=== PATIENT | male | born 1985 | race Hispanic/Latino ===

== ENCOUNTER 2023-03-20 06:05 | Day surgery (SDC) | payer BC ==
[~2023-03-20] VITALS: Ht 182.9 cm; Wt 104.5 kg
[2023-03-20 06:14] VITALS: BP 120/64
--- NOTE | 2023-03-20 09:02 | NUR ---
03/20/23 0902 Brook Hernandez 0843- PT ARRIVES TO PACU FROM OR VIA STRETCHER. PT REPORTS PAIN 4/10 BUT STATES TOLERABLE AT THIS TIME. PT ON 6L OF O2 VIA MASK AND IS AWAKE BUT NOT ORIENTED. PT REORIENTED TO UNIT AND REACHING AT TAKING MASK OFF. PT CALMED AND ASKING QUESTIONS APPROPRIATELY. INCISION IS C/D/I, PT EDUCATED ABOUT NOT TOUCHING INCISION SITE AND STATES VERBAL UNDERSTANDING. REPORT RECEIVED FROM TATYANA FERNANDEZ AND MILTON RN. 0850- PT TRIALED TO RA, PT O2 SATS >90% VIA RA AND REPORTS NO DIFFICULTY BREATHING OR SOB. PT ASKING APPROPRIATE QUESTIONS AT THIS TIME. 0858- PT PERIODICALLY CLOSING EYES. PT ON RA W/O2 SATS >90%. RESPIRATIONS REMAIN EVEN AND UNLABORED, NO SIGNS OF DISTRESS. ESTHELA HUGGER IN PLACE D/T REPORT OF FEELING COLD. PT STATES NO CHANGE IN PAIN SCALE FROM 4/10 TOLERABLE PAIN LEVEL AT THIS TIME.
[2023-03-20] MEDS ORDERED: IBUPROFEN600 MG PO (09:04)
[2023-03-20] MEDS ORDERED: ACETAMINOPHEN500 MG PO (09:04)
[2023-03-20] MEDS ORDERED: OXYCODON-ACETA1 EAC2 PO (09:04)
[2023-03-20 09:24] VITALS: BP 118/71
--- NOTE | 2023-03-20 09:32 | NUR ---
LE 0915 PATIENT BACK TO ROOM 3. VITAL SIGNS COMPLETE. PATIENT ALERT AND ORIENTED. BREATHING EQUAL AND UNLABORED. PATIENT STATES PAIN IS A 4/10 BUT IS TOLERABLE. PATIENT DENIES BEING NAUSEATED. PATIENT DRINKING WATER AND EATING CRACKERS. DRESSING CLEAN, DRY AND INTACT. IVF INFUSING. SCD'S ON. CALL LIGHT WITHIN REACH NO FUTHER NEEDS. NO QUESTIONS.
[2023-03-20 10:27] VITALS: BP 111/60
--- NOTE | 2023-03-20 10:28 | NUR ---
LE 1000 PATIENT AMBULATED TO THE RESTROOM. PATIENT VOIDED CLEAR AND YELLOW URINE. PATIENT BACK TO ROOM. PATIENT STATES PAIN HAS IMPROVED SINCE GIVING PAIN MEDICINE SEE EMAR. PATIENT ALERT AND ORIENTED. PATIENT BREATHING EQUAL AND UNLABORED. OXYGEN SATURATIONS ABOVE 90% ON ROOM AIR. PATIENT DENIES BEING NAUSEATED. PATIENT ASKED IF HE COULD GO TO WORK TOMORROW. EXPLAINED TO PATIENT NO WORK 24 HOURS POST ANESTHESIA. 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 PATIENT DRESSING HAS SMALL AMOUNT OF RED DRAINAGE ON IT. LE 1020 PATIENT HAS MET DISCHARGE CRITERIA. PATIENT WAS ABLE TO DRESS SELF AND TOLERATED IT WELL. PATIENT IV D/C'D WNL. PATIENT GIVEN DISCHARGE INSTRUCTIONS AND UNDERSTOOD. NO QUESTIONS AT THIS TIME. NO FUTHER NEEDS.
--- NOTE | 2023-03-20 11:51 | NUR ---
AND SON IN ROOM. EXERCISED MINISTRY OF PRESENCE TALKED OF ADJUSTING TO BECOMING FAMILY OF THREE. PT CONSENTED TO PRAYER. PRAYED FOR SUCCESSFUL PROCEDURE, MAHER RECOVERY, AND ONGOING BLESSING.
--- NOTE | 2023-03-21 13:56 | OR ---
[facility] [address], [place] [address] Signed DATE OF OPERATION: 03/20/2023 SURGEON: Neo Nichols MD PREOPERATIVE DIAGNOSIS: Right symptomatic posterior (occipital) soft tissue scalp mass. POSTOPERATIVE DIAGNOSIS: Right symptomatic posterior (occipital) soft tissue scalp mass consistent with lipoma, subgaleal 3 cm. PROCEDURE: Excision of subgaleal soft tissue mass, right occipital area. ANESTHESIA: General LMA, Chiki Reddy CRNA and local 5 mL of 0.25% Marcaine with epinephrine. 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 He has had no drainage or other area of problem with it. The patient was seen by Dr. Adams while accompanying his to a peripartum exam. The soft tissue mass is examined and highly consistent with a lipoma or less likely an epidermal inclusion cyst. He has never had drainage from the area and palpation shows to be relatively mobile and distinct. He is admitted at this time to undergo excision of the abnormality. He understands the risk of bleeding, infection, cosmetic deformity, and so on. FINDINGS: Indeed it was a lipoma. It was directly adjacent to the bone of the skull. It was beneath the galea muscle layer. Complete excision was undertaken without problem and appeared benign. It is approximately 3 cm in maximum dimension. Cosmesis was quite good. DESCRIPTION OF PROCEDURE: The patient was brought to the operating room, placed in the lateral position left side down. He was given a general LMA type anesthetic in that position. The posterior occiput in the lesion in question was prepared with a Betadine solution and draped sterilely. Mindful of the line of skin tension (Luis's lines), a transverse incision was made directly over the lesion. Dissection was carried through the spongy dermis with electrocautery. As usual, it was highly vascular. Ultimately, the galea was Electronically Signed By: NEO NICHOLS MD 03/21/23 1356 PATIENT NAME: JANA DIAZ III OPERATIVE REPORT DATE OF : 87 REPORT #: [id number] PHYSICIAN: NEO NICHOLS MD PCP: NO PRIMARY CARE PHYSICIAN REPORT IS CONFIDENTIAL AND NOT TO BE RELEASED WITHOUT AUTHORIZATION [facility] [address], [place] [address] Signed encountered and similarly divided revealing the underlying soft tissue mass, which was consistent with lipoma. This was gently and carefully excised completely from its deepest attachments which was directly to the bone itself. The lesion was completely consistent with a lipoma. Irrigation was undertaken and the galea was reapproximated with interrupted 2-0 Vicryl. The scalp vessel which was exuberant in its blood flow was secured with a 3-0 Vicryl suture. Additional closure was undertaken with interrupted 2-0 Vicryl and running subcuticular 3-0 Vicryl for the skin. Steri-Strips were applied as well as an Acticoat dressing. Blood loss was estimated at 10 mL. Sponge, needle and instrument counts were reported as correct x3. MD VARGAS Thakkar/OPALL /[id number] cc: Carlyn Adams MD Copies: CARLYN ADAMS MD ~ Electronically Signed By: NEO NICHOLS MD 03/21/23 1356 PATIENT NAME: JANA DIAZ III OPERATIVE REPORT DATE OF : [birth year] REPORT #: [id number] PHYSICIAN: NEO NICHOLS MD PCP: NO PRIMARY CARE PHYSICIAN REPORT IS CONFIDENTIAL AND NOT TO BE RELEASED WITHOUT AUTHORIZATION
--- NOTE | 2023-03-28 18:30 | PATH ---
[facility] [address] [place], [place] [address] Signed SPECIMEN(S): A SCALP SPECIMEN SOURCE: A. SCALP CLINICAL HISTORY: Soft tissue mass of scalp. FINAL PATHOLOGIC DIAGNOSIS: Mass, scalp, excision: - Lipoma. COMMENT: The specimen consists of benign adipose tissue consistent with a lipoma. Atypical features are not seen. K MICROSCOPIC EXAMINATION: Histologic sections of all submitted blocks are examined by light microscopy. These findings, together with the gross examination, support the pathologic diagnosis. GROSS DESCRIPTION: The specimen, labeled and designated "Red, I, " and designated on the requisition "deep soft tissue mass of scalp," is received in formalin and consists of a five gram portion of yellow-douglass adipose tissue that is 3.0 x 2.4 x 1.7 cm. The specimen is partially surfaced by a transparent membranous tissue. The tissue is inked and serially sectioned to reveal a yellow homogeneous cut surface. Management Intern sections are submitted in (A1-A3). FB (under the direct supervision of a pathologist) The Gross Description was prepared using a voice recognition system. The report was reviewed for accuracy; however, sound-alike word errors, addition and/or deletions may occur. If there is any question about this report, please contact Client Services. ADDITIONAL NOTES: Immunohistochemical and/or in situ hybridization studies if performed in this case included appropriate positive controls that reacted as expected. This test was developed and its performance characteristics determined by [email or web address]. It has not been cleared or PATIENT NAME: JANA DIAZ III PATHOLOGY DATE OF : [birth year] REPORT #: [id number] PHYSICIAN: ANGEL SALAS PCP: NO PRIMARY CARE PHYSICIAN REPORT IS CONFIDENTIAL AND NOT TO BE RELEASED WITHOUT AUTHORIZATION [facility] [address] [place], [place] [address] Signed approved by the U.S. Food and Drug Administration. The FDA has determined that such clearance or approval is not necessary. This test is used for clinical purposes. It should not be regarded as investigational or for research. [email or web address] is certified under the Clinical Laboratory Improvement Amendments of 1988 (CLIA) as qualified to perform high complexity clinical laboratory testing. PERFORMING LABORATORY: Technical component was performed by [email or web address], [address] [place] [id number] (CLIA# [id number]). Professional interpretation was performed by [facility] - [facility], [facility] [address] [address] (CLIA#:[id number]). Diagnostician: Farooq Ritter MD Pathologist Electronically Signed 03/28/2023 Copies: ~ PATIENT NAME: JANA DIAZ III PATHOLOGY DATE OF : [birth year] REPORT #: [id number] PHYSICIAN: [facility] PCP: NO PRIMARY CARE PHYSICIAN REPORT IS CONFIDENTIAL AND NOT TO BE RELEASED WITHOUT AUTHORIZATION
== END 2023-03-20 10:20 | disposition home or self-care (01) ==
LOC: DS 06:05
PROVIDERS: ATTEND Surgery
PROC: 0JB00ZZ Excision of Scalp Subcutaneous Tissue and Fascia, Open Approach (ICD-10-PCS; principal; 2023-03-20 07:30)
DX: D17.0 Benign lipomatous neoplasm of skin and subcutaneous tissue of head, face and neck (principal)
CPT/HCPCS: 00300; J0131; J0690; J1100; J1644; J1885; J2001; J2250; J2405; J2704; J3010; J7121

== ENCOUNTER 2023-03-21 03:05 | Emergency (ER) | payer BC ==
[~2023-03-21] VITALS: Ht 182.9 cm; Wt 110.7 kg
[~2023-03-21 03:05] MED LIST: ACETAMINOPHEN500 MG PO; IBUPROFEN600 MG PO; OXYCODON-ACETA1 EAC2 PO
[2023-03-21 03:24] VITALS: BP 140/67
== END 2023-03-21 03:24 | disposition home or self-care (01) ==
LOC: ED 03:05
DX: Z48.01 Encounter for change or removal of surgical wound dressing (principal); Z79.899 Other long term (current) drug therapy
CPT/HCPCS: 99282